=== PATIENT | male | born 1995 | race Caucasian/White ===

== ENCOUNTER 2023-10-02 11:48 | Emergency (ER) | payer BC, SELFPAY ==
[2023-10-02] VITALS (12 sets, daily range): BP systolic 126–151; BP diastolic 72–98; PULSE 68–80; RESP 12–17; TEMP 36.7; O2SAT 97–100
--- NOTE | 2023-10-02 11:53 | ECG_ITS ---
Measurements Intervals [place] Rate: 85 P: 6 [place]: 133 QRS: 30 QRSD: 105 T: 15 QT: 349 QTc: 417 Interpretive Statements SINUS RHYTHM MINIMAL Q WAVES- ANTEROLAT/INF LEADS BASELINE ARTIFACT- I, II, AVR, AVL, AVF, V1, V3 BORDERLINE ECG NO PREVIOUS ECG AVAILABLE FOR COMPARISON Electronically Signed On 10-02-2023 13:47:58 [employer] by Marcello Castro D.O.
[2023-10-02 12:29] LABS: Basophils Absolute Auto 0.07 K/mm3 (0.00-0.10); Eosinophils Absolute Auto 0.12 K/mm3 (0.02-0.50); Eosinophils Percent Auto 1.7 % (1.0-6.0); Hematocrit 43.5 % (40.0-54.0); Hemoglobin 14.4 g/dL (14.0-18.0); Immature Granulocyte Absolute 0.03 K/mm3 (0.00-0.00); Immature Granulocyte Percent A 0.4 % (0.0-0.0); Lymphocytes Percent Auto 24.5 % (18.0-42.0); Mean Corpuscular HGB Conc 33.1 g/dL (32.0-36.0); Mean Corpuscular Hemoglobin 27.4 pg (27.0-31.0); Mean Corpuscular Volume 82.9 fL (78.0-102.0); Mean Platelet Volume 12.5 fl (8.7-11.0); Monocytes Absolute Auto 0.47 K/mm3 (0.10-0.90); Monocytes Percent Auto 6.8 % (2.0-11.0); Neutrophils Absolute Auto 4.5 K/mm3 (1.7-7.2); Neutrophils Percent Auto 65.6 % (50.0-70.0); Platelet Count Result 270 K/mm3 (150-420); Red Blood Count 5.25 M/mm3 (4.70-6.10); Red Cell Distribution Width 12.5 % (11.6-14.4); White Blood Count 6.9 K/mm3 (4.8-10.8)
[2023-10-02 12:54] LABS: Alanine Aminotransferase 135 U/L (16-63); Albumin Level 4.1 g/dL (3.4-5.0); Alkaline Phosphatase 109 U/L (46-116); Anion Gap 10 mmol/L (8-16); Aspartate Amino Transferase 36 U/L (15-37); Bilirubin,Total 0.6 mg/dL (0.00-1.00); Blood Urea Nitrogen 11 mg/dL (7-18); Calcium 9.4 mg/dL (8.5-10.1); Carbon Dioxide 26 mmol/L (21-32); Chloride 102 mmol/L (98-108); Estimated Glomerular Filt Rate > 60; Glucose 100 mg/dL (70-99); Osmolality Calculated 285 mOsm/kg (285-295); Potassium 4.4 mmol/L (3.5-5.1); Sodium 138 mmol/L (136-145); Total Protein 7.8 g/dL (6.4-8.2); Troponin I 5.3 ng/L (0.00-60.4)
--- NOTE | 2023-10-02 13:06 | ED.CHESTPAIN ---
HPI - Chest Pain General Chief Complaint: Chest Pain Stated Complaint: anxiety Time Seen by Provider: 10/02/23 11:53 Source: patient and family Mode of arrival: ambulatory Limitations: no limitations History of Present Illness HPI narrative: this is a 27-year-old male that presents with some chest discomfort has a history of anxiety and concerned that he has heart issues because his father had young of heart disease. Currently his symptoms have resolved is comfortable no chest pain no anxiety no shortness of breath no nausea vomiting. complaint: chest discomfort Onset (ago): day(s) Timing of current episode: episodic Prior episodes: Yes Onset: during rest Pain radiation: none Severity: similar to previous episodes ( Has resolved) Relieving factors: other Related Data Home Medications Medication Instructions Recorded Confirmed No Home Medications 10/02/23 10/02/23 Allergies Allergy/AdvReac Type Severity Reaction Status Date / Time No Known Allergies Allergy Verified 10/02/23 12:15 Review of Systems Review of Systems: All systems reviewed & are unremarkable except as noted in HPI and below PMFSH Past Medical History Medical History Patient denies medical problems Exam Const: General: healthy appearing Nutritional Appearance: well nourished Orientation/consciousness: patient oriented x3 Neck: Neck: normal visual inspection, no lymphadenopathy and no meningeal signs Chest: Chest palpation & inspection: normal inspection of the chest Resp: Effort & Inspection: normal respiratory effort Auscultation: clear to auscultation bilaterally Cardio: Rate: regular rate Rhythm: regular rhythm GI: GI Palp: Yes Soft to palpation Auscultation: normal bowel sounds : General: Yes bladder normal to palpation Urinary Catheter: Urinary Catheter: patent and draining Skin: General skin exam: normal color Rashes: no rashes Extrem: General: normal to inspection Psych: Mental Status: mental status grossly normal Affect: Anxious affect present Course Course Emergency Course: EKG normal sinus rhythm labs performed with no acute abnormalities suggested an antianxiety medication which patient declined at this time and advised from to follow up with primary for further evaluation if symptoms persist. Vital Signs Vital signs: Vital Signs Temperature 36.7 C 10/02/23 11:48 Pulse Rate 80 10/02/23 11:48 Respiratory Rate 13 10/02/23 11:48 Blood Pressure 151/98 H 10/02/23 11:48 Pulse Oximetry 100 10/02/23 11:48 Oxygen Delivery Room Air 10/02/23 11:48 Temperature 36.7 C 10/02/23 11:48 Pulse Rate 80 10/02/23 11:48 Respiratory Rate 13 10/02/23 11:48 Blood Pressure 151/98 H 10/02/23 11:48 Pulse Oximetry 100 10/02/23 11:48 Oxygen Delivery Room Air 10/02/23 11:48 MDM - Chest Pain Lab Data 10/02/23 12:24 10/02/23 12:24 Labs: Lab Results 10/02/23 Range/Units 12:24 WBC 6.9 (4.8-10.8) K/mm3 RBC 5.25 (4.70-6.10) M/mm3 Hgb 14.4 (14.0-18.0) g/dL Hct 43.5 (40.0-54.0) % MCV 82.9 (78.0-102.0) fL MCH 27.4 (27.0-31.0) pg MCHC 33.1 (32.0-36.0) g/dL RDW 12.5 (11.6-14.4) % Plt Count 270 (150-420) K/mm3 MPV 12.5 H (8.7-11.0) fl Immature Gran % (Auto) 0.4 H (0.0-0.0) % Neut % (Auto) 65.6 (50.0-70.0) % Lymph % (Auto) 24.5 (18.0-42.0) % [place] % (Auto) 6.8 (2.0-11.0) % Eos % (Auto) 1.7 (1.0-6.0) % Baso % (Auto) 1.0 (0.0-1.0) % Lymph # (Auto) 1.70 (1.10-4.50) K/mm3 [place] # (Auto) 0.47 (0.10-0.90) K/mm3 Eos # (Auto) 0.12 (0.02-0.50) K/mm3 Baso # (Auto) 0.07 (0.00-0.10) K/mm3 Abs Immat Gran (auto) 0.03 H (0.00-0.00) K/mm3 Absolute Neuts (auto) 4.5 (1.7-7.2) K/mm3 Absolute Nucleated RBC 0.00 (0.00-0.00) K/mm3 Nucleated RBC % 0.0 (0-0.0) % Sodium 138 (136-145) mmol/L Potassium 4.4 (3.5-5.1) mmol/L Chloride
== END 2023-10-02 13:20 | disposition home or self-care (01) ==
PROVIDERS: Emergency Provider Emergency Medicine; PCP Internal Medicine
DX: F41.9 Anxiety disorder, unspecified (principal)
CPT/HCPCS: 36415; 80053; 84484; 85025; 93005; 99284

== ENCOUNTER 2025-03-22 07:07 | Outpatient (CLI) | payer BC, SELFPAY ==
[2025-03-22 07:22] LABS: Basophils Absolute Auto 0.09 K/mm3 (0.00-0.10); Basophils Percent Auto 1.2 % (0.0-1.0); Eosinophils Absolute Auto 0.17 K/mm3 (0.02-0.50); Eosinophils Percent Auto 2.3 % (1.0-6.0); Hematocrit 47.2 % (40.0-54.0); Hemoglobin 15.5 g/dL (14.0-18.0); Immature Granulocyte Absolute 0.03 K/mm3 (0.00-0.00); Immature Granulocyte Percent A 0.4 % (0.0-0.0); Lymphocytes Absolute Auto 2.49 K/mm3 (1.10-4.50); Lymphocytes Percent Auto 34.2 % (18.0-42.0); Mean Corpuscular HGB Conc 32.8 g/dL (32-36); Mean Corpuscular Hemoglobin 26.9 pg (27.0-31.0); Mean Corpuscular Volume 81.8 fL (78.0-102.0); Mean Platelet Volume 12.7 fl (8.7-11.0); Monocytes Absolute Auto 0.55 K/mm3 (0.10-0.90); Monocytes Percent Auto 7.5 % (2.0-11.0); Neutrophils Absolute Auto 3.96 K/mm3 (1.70-7.20); Neutrophils Percent Auto 54.4 % (50.0-70.0); Platelet Count Result 272 K/mm3 (150-420); Red Blood Count 5.77 M/mm3 (4.70-6.10); Red Cell Distribution Width 12.7 % (11.6-14.4); White Blood Count 7.3 K/mm3 (4.8-10.8)
[2025-03-22 07:39] LABS: Hemoglobin A1C 5.8 % (<5.7)
[2025-03-22 08:04] LABS: Alanine Aminotransferase 155 U/L (6-50); Albumin Level 4.7 g/dL (3.5-5.1); Alkaline Phosphatase 81 U/L (38-126); Anion Gap 9 mmol/L (4-12); Aspartate Amino Transferase 70 U/L (17-59); Bilirubin,Total 0.5 mg/dL (0.2-1.3); Blood Urea Nitrogen 16 mg/dL (9-20); Calcium 9.4 mg/dL (8.4-10.2); Carbon Dioxide 24 mmol/L (22-30); Chloride 109 mmol/L (98-107); Cholesterol 179 mg/dL (0-200); Estimated Glomerular Filt Rate > 60; Glucose 100 mg/dL (65-110); HDL Direct 34 mg/dL; LDL Cholesterol Calculated 118 mg/dL (<130); Osmolality Calculated 295 mOsm/kg (285-295); Potassium 4.7 mmol/L (3.4-5.0); Sodium 142 mmol/L (137-145); Total Protein 7.8 g/dL (6.3-8.2); Triglycerides 133 mg/dL (<150)
[2025-03-22 17:43] LABS: Add Urine Microscopic? NO; Appearance Urine Clear (Clear); Bilirubin Urine Negative (Negative); Blood Urine Negative (Negative); Color Urine Light Yellow (Yellow); Glucose Urine UA Negative (Negative); Ketones Urine Negative (Negative); Leukocyte Esterase Ur Negative (Negative); Nitrate Urine Negative (Negative); Protein Urine Negative (Negative); Specific Grav Ur 1.025 (1.010-1.020); Urobilinogen Urine 0.2 mg/dL (0.2-1.0)
[2025-03-24 05:33] LABS: Hepatitis B Surface Antigen NON-REACTIVE (NON-REACTIVE)
[2025-03-24 05:53] LABS: Hepatitis C Virus Antibody NON-REACTIVE (NON-REACTIVE)
[2025-03-24 06:24] LABS: Hepatitis A Antibody IgM NON-REACTIVE (NON-REACTIVE); Hepatitis B Core Antibody NON-REACTIVE (NON-REACTIVE)
== END 2025-03-22 07:08 | disposition home or self-care (01) ==
PROVIDERS: PCP Internal Medicine; Visit Provider Internal Medicine
DX: Z00.00 Encounter for general adult medical examination without abnormal findings (principal); Z83.3 Family history of diabetes mellitus
CPT/HCPCS: 36415; 80053; 80061; 80074; 81003; 82728; 83036; 84443; 85025

== ENCOUNTER 2025-05-01 14:16 | Outpatient (RCR) | payer BC, SELFPAY ==
[2025-05-01 14:36] VITALS: BMI 31.9
--- NOTE | 2025-05-01 15:25 | PCDIET ---
Nutrition consult complete. JEREMY
== END 2025-07-16 11:43 | disposition home or self-care (01) ==
LOC: ANHDMC 14:16
PROVIDERS: PCP Internal Medicine; Visit Provider Internal Medicine
DX: R73.03 Prediabetes (principal); R73.9 Hyperglycemia, unspecified; K76.0 Fatty (change of) liver, not elsewhere classified; Z71.3 Dietary counseling and surveillance
CPT/HCPCS: 97802